=== PATIENT | female | born 1950 | race Caucasian/White ===

== ENCOUNTER 2022-07-17 06:17 | Inpatient (IN) | payer MEDICARE, BC ==
[2022-07-13 11:21] LABS: Basophils # (auto) 0.1 10 ^3/uL (0-0.2); Basophils % (auto) 0.7 % (0.0-2.0); Eosinophils # (auto) 0.2 10 ^3/uL (0-0.8); Eosinophils % (auto) 1.8 % (0.0-7.0); Hematocrit 47.4 % (36.0-46.0); Hemoglobin 15.4 g/dL (12.2-16.2); Lymphocytes # (auto) 2.4 10 ^3/uL (0.4-5.4); Lymphocytes % (auto) 26.1 % (10.0-50.0); Mean Corpuscular Hemoglobin 28.8 pg (28.0-32.0); Mean Corpuscular Hgb Conc. 32.5 g/dL (32.0-36.0); Mean Corpuscular Volume 88.6 fL (80.0-100.0); Monocytes # (auto) 0.6 10 ^3/uL (0-1.3); Monocytes % (auto) 6.7 % (0.0-12.0); Neutrophils # (auto) 5.9 10 ^3/uL (1.6-8.6); Neutrophils % (auto) 64.7 % (37.0-80.0); Nucleated Red Blood Cells % 0.1 %; Red Blood Cells 5.34 10^6/uL (4.0-5.20); Red Cell Distribution Width 14.5 % (11.8-14.3); White Blood Cell 9.1 10^3/uL (4.4-10.8)
[2022-07-13 11:36] LABS: Albumin 3.7 g/dL (3.4-5.0); Potassium 4.1 mmol/L (3.5-5.1)
[2022-07-13 11:37] LABS: Urine Bacteria FEW /hpf (None Seen); Urine Blood Negative /uL (Negative); Urine Mucus FEW (None Seen); Urine Specific Gravity 1.019 (1.001-1.035); Urine WBC 5 /hpf (0 - 5)
[2022-07-13 11:39] LABS: Bilirubin, Total 0.4 mg/dL (0.2-1.0); Total Protein 7.6 g/dL (6.4-8.2)
[2022-07-14 11:01] LABS: INR 0.93 (0.9-1.15); Partial Thromboplastin Time 30.6 sec (24.6-33.4)
[2022-07-17] VITALS (7 sets, daily range): BP systolic 123–139; BP diastolic 55–64
[~2022-07-17] VITALS: Ht 154.9 cm; Wt 60.3 kg
[~2022-07-17 06:17] MED LIST: ASPI1TAB20 PO; ATO40T PO; CHOL200021 PO; DENO60SO SC; DICY10CA PO; DIPH2.5T73 PO; ESTR1TAB5 PO; FERR-7 PO; HYDR-3682 PO; LEV100T PO; MELO1TAB73 PO; MULT-195 OR; NIF10C PO; PANT40TA2 PO; SILD50TA42 PO; TIOT1AER IN; TRIA0.25 PO
[2022-07-17] MEDS ORDERED: ROCURONIUM 10MG/ML 10ML VIAL IV ONE (06:31)
[2022-07-17] MEDS ORDERED: SUCCINYLCHOLINE CHLORIDE 20 MG/ML 10ML VIAL IV ONE (06:31)
[2022-07-17] MEDS ORDERED: LIDOCAINE 1%-Mpf/Epinephrine 1:200,000 ONE (06:34)
[2022-07-17] MEDS ORDERED: BUPIVACAINE HCL 0.25% P/F 10 ML VIAL ONE (06:34)
[2022-07-17] MEDS ORDERED: METHYLENE BLUE 0.5% 5MG/ML 10ml AMP IV ONE (06:34)
[2022-07-17] MEDS ORDERED: DexAMETHasone SOD PHOS 10MG/1ML VIAL INJ ONE (06:42)
[2022-07-17] MEDS ORDERED: PROPOFOL 10 MG/ML 20 ML IV ONE (06:42)
[2022-07-17] MEDS ORDERED: HYDROmorphone HCL 2 MG/ML VL/or syr ONE (06:42)
[2022-07-17] MEDS ORDERED: fentaNYL CITRATE 5 ML ONE (06:42)
[2022-07-17] MEDS ORDERED: ONDANSETRON HCL 4 MG/2 ML VIAL ONE (06:42)
[2022-07-17] MEDS ORDERED: SODIUM CHLORIDE LOCK 10 ML ONE (06:42)
[2022-07-17] MEDS ORDERED: MIDAZOLAM HCL 2MG/2ML 2ml VIAL (1mg/ml) ONE (06:42)
[2022-07-17] MEDS ORDERED: GLYCOPYRROLATE 0.2 MG/ML 1ML VIAL ONE (06:42)
[2022-07-17] MEDS ORDERED: fentaNYL CITRATE 100 MCG/2 ML VL ONE (06:42)
[2022-07-17] MEDS ORDERED: NEOSTIGMINE 1 MG/ML INJ (10mg/10ML VIAL) ONE (06:42)
[2022-07-17] MEDS ORDERED: CLINDAMYCIN 600MG IV 50 ML IV ONE (07:56)
[2022-07-17] MEDS ORDERED: NITROGLYCERIN 0.4 MG SL TAB SL PRN (08:30)
[2022-07-17] MEDS ORDERED: MORPHINE SULFATE 4 MG/ML SYR/VIAL IV PRN (08:30)
[2022-07-17] MEDS ORDERED: ACETAMINOPHEN IV 100 ML IV ONE (08:30)
[2022-07-17] MEDS ORDERED: CLINDAMYCIN 900MG IV 50 ML IV ONE (08:30)
[2022-07-17] MEDS ORDERED: ONDANSETRON HCL 4 MG/2 ML VIAL IV PRN (08:30)
[2022-07-17] MEDS ORDERED: fentaNYL CITRATE 100 MCG/2 ML VL IV PRN (09:00)
[2022-07-17] MEDS ORDERED: HYDROmorphone HCL 2 MG/ML VL/or syr IV PRN (09:00)
[2022-07-17] MEDS ORDERED: METOCLOPRAMIDE HCL 5MG/ml INJ 2ml VIAL IV PRN (09:00)
[2022-07-17] MEDS ORDERED: POVIDONE IODINE 10 % TOPICAL OINT 30GM TOP ONE (10:42)
[2022-07-17] MEDS: LEVOTHYROXINE SODIUM 100 MCG TAB PO SCH (14:07)
[2022-07-17] MEDS: DIPHENOXYLATE W/ATROPINE 2.5 MG TAB PO SCH ×3 (14:07→21:33)
[2022-07-17] MEDS: SODIUM CHLORIDE 0.9% 1,000 ML IV SCH (14:07)
[2022-07-17] MEDS ORDERED: TEMAZEPAM 15 MG CAP PO PRN (15:00)
[2022-07-17] MEDS ORDERED: ALBUTEROL SULF 2.5 MG/0.5ML(0.5%) NEB SOLN NEB PRN (15:00)
[2022-07-17] MEDS: SILDENAFIL CITRATE 20 MG TAB PO SCH (19:50)
[2022-07-17] MEDS ORDERED: ATORVASTATIN 20 MG TAB PO SCH (22:00)
[2022-07-18 05:00] VITALS: BP 139/54
[2022-07-18 05:41] LABS: Basophils # (auto) 0 10 ^3/uL (0-0.2); Eosinophils # (auto) 0 10 ^3/uL (0-0.8); Hematocrit 39.9 % (36.0-46.0); Hemoglobin 13.5 g/dL (12.2-16.2); Lymphocytes # (auto) 0.9 10 ^3/uL (0.4-5.4); Lymphocytes % (auto) 6.6 % (10.0-50.0); Mean Corpuscular Hemoglobin 29.9 pg (28.0-32.0); Mean Corpuscular Hgb Conc. 33.8 g/dL (32.0-36.0); Mean Corpuscular Volume 88.5 fL (80.0-100.0); Monocytes # (auto) 0.8 10 ^3/uL (0-1.3); Monocytes % (auto) 5.8 % (0.0-12.0); Neutrophils # (auto) 12.1 10 ^3/uL (1.6-8.6); Neutrophils % (auto) 87.6 % (37.0-80.0); Red Blood Cells 4.51 10^6/uL (4.0-5.20); Red Cell Distribution Width 14.8 % (11.8-14.3); White Blood Cell 13.8 10^3/uL (4.4-10.8)
[2022-07-18] MEDS: DIPHENOXYLATE W/ATROPINE 2.5 MG TAB PO SCH ×2 (06:00→12:00)
[2022-07-18 06:07] LABS: Albumin 3.1 g/dL (3.4-5.0); BUN/Creatinine Ratio 20.5; Calcium 8.5 mg/dL (8.5-10.1); Potassium 4.4 mmol/L (3.5-5.1)
[2022-07-18 06:09] LABS: Bilirubin, Total 0.4 mg/dL (0.2-1.0); Total Protein 6.4 g/dL (6.4-8.2)
[2022-07-18 08:00] VITALS: BP 134/61
[2022-07-18] MEDS: SODIUM CHLORIDE 0.9% 1,000 ML IV SCH (08:30)
[2022-07-18 08:50] VITALS: BP 134/61
[2022-07-18] MEDS ORDERED: NIFEdipine ER 30 MG TAB PO SCH (10:00)
[2022-07-18] MEDS ORDERED: PANTOPRAZOLE 40 MG TAB PO SCH (10:00)
[2022-07-18] MEDS: SILDENAFIL CITRATE 20 MG TAB PO SCH (10:08)
[2022-07-18] MEDS: LEVOTHYROXINE SODIUM 100 MCG TAB PO SCH (10:09)
[2022-07-18 12:13] VITALS: BP 134/61
== END 2022-07-18 14:18 | disposition home or self-care (01) | DRG 748 ==
LOC: SUR 06:17 → TELE 08:32 → TELE-WESTW 12:04
PROVIDERS: ADMIT Obstetrics & Gynecology; ATTEND Internal Medicine
PROC: 8E0W4CZ Robotic Assisted Procedure of Trunk Region, Percutaneous Endoscopic Approach (ICD-10-PCS; 2022-07-17)
PROC: 0USG4ZZ Reposition Vagina, Percutaneous Endoscopic Approach (ICD-10-PCS; principal; 2022-07-17 08:01)
DX: N81.3 Complete uterovaginal prolapse (principal); Z20.822 Contact with and (suspected) exposure to COVID-19; E03.9 Hypothyroidism, unspecified; E78.5 Hyperlipidemia, unspecified; I10 Essential (primary) hypertension; I73.00 Raynaud's syndrome without gangrene; J44.9 Chronic obstructive pulmonary disease, unspecified; I27.20 Pulmonary hypertension, unspecified
CPT/HCPCS: 36415; 80053; 81001; 84443; 85025; 85610; 85730; 86850; 86900; 86901; G0378; J0330; J1100; J2250; J2405; J2704; J3490